=== PATIENT | female | born 1985 | race Caucasian/White ===

== ENCOUNTER 2017-08-23 22:27 | Inpatient (IN) | payer MEDICAID ==
[2017-08-23] MEDS: LACTATED RINGER'S 1,000 ML IV (01:00)
[2017-08-24] MEDS ORDERED: BUTORPHANOL 2 MG INJ IV ×2
[2017-08-24] MEDS ORDERED: IBUPROFEN 600 MG TAB PO
[2017-08-24] MEDS ORDERED: LIDOCAINE 1% (MPF) 30 ML INJ INJ
[2017-08-24] MEDS ORDERED: HYDROCODONE/APAP (5/325) TAB PO
[2017-08-24] MEDS: AMPICILLIN 2 GM/NS (PMX) 100 ML IV (01:25)
[2017-08-24 01:38] LABS: ADD MAN DIFF? NO
[2017-08-24 01:43] LABS: WHITE BLOOD COUNT 10.3 10^3/ul (4.8-10.8)
[2017-08-24 01:43] LABS: BASOPHILS % 0.2 % (0.0-2.0); EOSINOPHILS # 0.1 10^3/ul (0.0-0.5); EOSINOPHILS % 1.4 % (0.0-7.0); HEMATOCRIT 31.1 % (37.0-47.0); HEMOGLOBIN 10.5 g/dl (12.0-16.0); LYMPHOCYTES # 2.5 10^3/ul (0.8-2.9); LYMPHOCYTES % 24.2 % (15.0-51.0); MEAN CORPUSCULAR HGB CONC 33.8 g/dl (32.0-37.0); MEAN CORPUSCULAR VOLUME 88.9 fl (82.0-101.0); MEAN PLATELET VOLUME 10.6 fl (7.4-10.4); MONOCYTE # 0.6 10^3/ul (0.3-0.9); NEUTROPHILS % 67.3 % (39.0-77.0); NUCLEATED RED BLOOD CELLS% 0.2 /100WBC (0.0-0.0); PLATELET COUNT 322 10^3/UL (140-415); RED CELL DISTRIBUTION WIDTH 13.2 % (11.5-14.5)
[2017-08-24 01:49] LABS: ADD UMIC YES; UR ASCORBIC ACID NEGATIVE (NEGATIVE); UR BACTERIA FEW /HPF (NONE SEEN); UR BILIRUBIN (Dip) NEGATIVE (NEGATIVE); UR BLOOD (Dip) NEGATIVE (NEGATIVE); UR CLARITY CLEAR (CLEAR); UR COLOR STRAW (YELLOW); UR GLUCOSE (Dip) NEGATIVE (NEGATIVE); UR KETONES (Dip) NEGATIVE (NEGATIVE); UR LEUKOCYTE ESTERASE (Dip) TRACE Leu/ul (NEGATIVE); UR NITRITE (Dip) NEGATIVE (NEGATIVE); UR RBC 0 /HPF (0-5); UR SPECIFIC GRAVITY (Dip) 1.006 (1.003-1.030); UR SQUAMOUS EPITHELIAL CELL FEW /HPF (FEW); UR TOTAL PROTEIN (Dip) NEGATIVE (NEGATIVE); UR UROBILINOGEN (Dip) NEGATIVE (NEGATIVE); UR WBC 0 /HPF (0-5)
[2017-08-24 01:56] LABS: INR 0.87; PROTIME 11.9 Sec (11.9-14.9); PT RATIO 0.9
[2017-08-24 02:00] LABS: ALANINE AMINOTRANSFERASE 19 IU/L (13-69); ALBUMIN 3.3 g/dl (3.3-4.9); ALBUMIN/GLOBULIN RATIO 0.94; ALKALINE PHOSPHATASE 263 IU/L (42-121); ANION GAP 15 (8-16); ASPARTATE AMINO TRANSFERASE 19 IU/L (15-46); BLOOD UREA NITROGEN 7 mg/dl (7-20); CALCIUM 9.2 mg/dl (8.4-10.2); CARBON DIOXIDE 22 mmol/L (21-31); CHLORIDE 106 mmol/L (97-110); CREATININE 0.49 mg/dl (0.44-1.00); GLUCOSE 97 mg/dl (70-220); POTASSIUM 3.8 mmol/L (3.5-5.1); SODIUM 139 mmol/L (135-144); TOTAL PROTEIN 6.8 g/dl (6.1-8.1)
[2017-08-24 02:30] LABS: HEPATITIS B SURFACE ANTIGEN NEGATIVE (NEGATIVE)
[2017-08-24] MEDS: LACTATED RINGER'S 500 ML IV ×2 (02:40→03:53)
[2017-08-24] MEDS: MISOPROSTOL 25 MCG CAPSULE PO (02:50)
[2017-08-24 03:43] LABS: PARTIAL THROMBOPLASTIN TIME 28.2 Sec (25.0-35.0)
[2017-08-24 04:32] LABS: AMPHETAMINE/METHAMPHETAMINE Negative (NEGATIVE); BARBITURATES Negative (NEGATIVE); BENZODIAZEPINES Negative (NEGATIVE); CANNABINOIDS Negative (NEGATIVE); COCAINE Negative (NEGATIVE); OPIATES Negative (NEGATIVE)
[2017-08-24] MEDS ORDERED: MISOPROSTOL 25 MCG CAPSULE PO (05:00)
[2017-08-24] MEDS: AMPICILLIN 1 GM/NS (PMX) 50 ML IV ×3 (05:12→13:49)
[2017-08-24] MEDS: LACTATED RINGER'S 1,000 ML IV ×3 (09:36→17:44)
[2017-08-24] MEDS ORDERED: NALOXONE (0.4 MG/ML) INJ IV (10:30)
[2017-08-24] MEDS: ONDANSETRON 4 MG INJ IV (11:25)
[2017-08-24] MEDS: OXYTOCIN 30 UNITS/LR 500 ML IV ×3 (15:37→23:22)
[2017-08-24] MEDS: FENTAnyl 2MCG/ML-ROPIV 0.2% 100 ML BAG EPI (17:44)
[2017-08-24] MEDS: DIPHENHYDRAMINE 50 MG INJ IV (20:14)
[2017-08-24] MEDS ORDERED: ACETAMINOPHEN 500 MG TAB PO (21:00)
[2017-08-24] MEDS ORDERED: OXYCODONE/ASPIRIN (4.88/325) TAB PO (21:00)
[2017-08-24] MEDS ORDERED: DIBUCAINE 1% 30 GM OINT PR (21:00)
[2017-08-24] MEDS ORDERED: CARBOPROST 250 MCG INJ IM ×2 (21:00)
[2017-08-24] MEDS ORDERED: METHYLERGONOVINE 0.2 MG INJ IM ×2 (21:00)
[2017-08-24] MEDS ORDERED: MISOPROSTOL 200 MCG TAB PR ×2 (21:00)
[2017-08-24] MEDS ORDERED: OXYTOCIN 30 UNITS/LR 500 ML IV ×3 (21:00)
[2017-08-24] MEDS ORDERED: SENNA/DOCUSATE NA (8.6MG/50MG) TAB PO (21:00)
[2017-08-24 22:31] LABS: RAPID PLASMA REAGIN NONREACTIVE (NR)
[2017-08-24] MEDS: IBUPROFEN 600 MG TAB PO (23:08)
[2017-08-25] MEDS: LANOLIN 7 GM TUBE TOP (03:32)
[2017-08-25] MEDS: WITCH HAZEL/GLYCERIN PAD PR (03:33)
[2017-08-25] MEDS: BENZOCAINE 20% 56 ML SPRAY TOP (03:33)
[2017-08-25] MEDS: OXYTOCIN 30 UNITS/LR 500 ML IV ×6 (03:34→20:51)
[2017-08-25 09:20] LABS: ADD MAN DIFF? NO
[2017-08-25 09:25] LABS: BASOPHILS % 0.2 % (0.0-2.0); EOSINOPHILS # 0.1 10^3/ul (0.0-0.5); EOSINOPHILS % 0.4 % (0.0-7.0); HEMOGLOBIN 10.7 g/dl (12.0-16.0); LYMPHOCYTES # 2.3 10^3/ul (0.8-2.9); LYMPHOCYTES % 14.6 % (15.0-51.0); MEAN CORPUSCULAR HEMOGLOBIN 29.1 pg (29.0-33.0); MEAN CORPUSCULAR HGB CONC 32.4 g/dl (32.0-37.0); MEAN CORPUSCULAR VOLUME 89.7 fl (82.0-101.0); MEAN PLATELET VOLUME 10.8 fl (7.4-10.4); MONOCYTE # 0.8 10^3/ul (0.3-0.9); MONOCYTES % 4.9 % (0.0-11.0); NEUTROPHIL # 12.5 10^3/ul (1.6-7.5); NEUTROPHILS % 79.4 % (39.0-77.0); PLATELET COUNT 312 10^3/UL (140-415); RED BLOOD COUNT 3.68 10^6/ul (4.20-5.40); RED CELL DISTRIBUTION WIDTH 13.3 % (11.5-14.5)
[2017-08-25 09:25] LABS: WHITE BLOOD COUNT 15.8 10^3/ul (4.8-10.8)
[2017-08-25] MEDS: IBUPROFEN 600 MG TAB PO (11:58)
[2017-08-25] MEDS: OXYCODONE/ASPIRIN (4.88/325) TAB PO ×2 (15:19→22:05)
[2017-08-26] MEDS: OXYTOCIN 30 UNITS/LR 500 ML IV ×2 (00:51→04:51)
[2017-08-26] MEDS: IBUPROFEN 600 MG TAB PO (06:23)
[2017-08-26] MEDS ORDERED: DIPHTH/TET/ACEL PERTUSS (ADULT) 0.5 ML VIAL IM* (09:00)
== END 2017-08-26 13:40 | disposition home or self-care (01) | DRG 775 ==
LOC: OBT 22:27 → L-D 22:28 → PP1 08-24 21:12
PROC: 10E0XZZ Delivery of Products of Conception, External Approach (ICD-10-PCS; principal; 2017-08-24)
DX: O80 Encounter for full-term uncomplicated delivery (principal); Z37.0 Single live birth; Z3A.39 39 weeks gestation of pregnancy
CPT/HCPCS: 62319; 76817; 76818; 80053; 80307; 81001; 85025; 85610; 85730; 86592; 86850; 86900; 86901; 87086; 87340; 93971; 99464